=== PATIENT | female | born 1960 | race Caucasian/White ===

== ENCOUNTER 2021-08-12 10:20 | Inpatient (IN) | payer MEDICAID ==
[~2021-08-12] VITALS: Ht 162.6 cm; Wt 76.7 kg
[2021-08-12 10:53] LABS: BASOPHILS % (AUTO) 0.8 % (0.0-2.0); EOSINOPHILS % (AUTO) 4.7 % (1.0-6.0); HEMATOCRIT 33.9 % (36-46); HEMOGLOBIN 10.9 g/dL (12.0-16.0); LYMPHOCYTES # (AUTO) 1.5 K/uL (1.0-4.8); LYMPHOCYTES % (AUTO) 15.4 % (22.0-44.0); MEAN CORPUSCULAR HEMOGLOBIN 25.5 pg (26.0-34.0); MEAN CORPUSCULAR HGB CONC 32.2 G/dL (31.0-37.0); MEAN CORPUSCULAR VOLUME 79 fL (80-100); MONOCYTES # (AUTO) 0.6 K/uL (0.1-1.0); MONOCYTES % (AUTO) 6.4 % (2.0-9.0); NEUTROPHILS # (AUTO) 7.2 K/uL (1.8-7.7); NEUTROPHILS % (AUTO) 72.7 % (40.0-70.0); PLATELET COUNT (AUTO) 435 K/uL (150-450); RED BLOOD CELL COUNT(AUTO) 4.27 MIL/uL (4.00-5.20); RED CELL DISTRIBUTION WIDTH 17.3 % (11.5-14.5)
[2021-08-12 10:57] LABS: ANION GAP 9 mmol/L (8-16); CALCIUM, TOTAL 8.5 mg/dL (8.8-10.5); CARBON DIOXIDE 28 mmol/L (22-29); CHLORIDE 106 mmol/L (98-107); CREATININE 0.83 mg/dL (0.60-1.30); GLOMERULAR FILTR. RATE CALC > 60 mL/min (>60); GLUCOSE,RANDOM 87 mg/dL (70-110); POTASSIUM 4.1 mmol/L (3.5-5.1); SODIUM SERUM 143 mmol/L (136-145); UREA NITROGEN, BLOOD 17 mg/dL (7-18)
[2021-08-12 11:01] LABS: AMPHET/METH SCREEN,URINE NEGATIVE (NEGATIVE); BARBITURATE SCREEN, URINE NEGATIVE (NEGATIVE); BENZODIAZEPINES SCREEN,URINE NEGATIVE (NEGATIVE); CANNABINOID SCREEN,URINE NEGATIVE (NEGATIVE); COCAINE SCREEN,URINE NEGATIVE (NEGATIVE); METHADONE SCREEN, URINE NEGATIVE (NEGATIVE); OPIATE SCREEN,URINE NEGATIVE (NEGATIVE)
[2021-08-12 11:02] LABS: ALANINE AMINOTRANSFERASE 17 U/L (12-78); ALBUMIN 3.5 g/dL (3.4-5.0); ALKALINE PHOSPHATASE 107 U/L (46-116); ASPARTATE AMINOTRANSFERASE 16 U/L (15-37); BILIRUBIN,TOTAL 0.3 mg/dL (0.1-1.0); TOTAL PROTEIN, SERUM 6.7 g/dL (6.4-8.2)
[2021-08-12 11:02] LABS: PHENCYCLIDINE SCREEN,URINE NEGATIVE (NEGATIVE)
[2021-08-12] MEDS ORDERED: PB/HYOSCY/ATR/SCOP/LIDO/MAALOX 55 ML BOTTLE PO ONE (13:45)
[2021-08-12] MEDS ORDERED: ZOLPIDEM TARTRATE 10 MG TABLET PO PRN (14:00)
[2021-08-12] MEDS ORDERED: QUEtiapine FUMARATE 100 MG TABLET PO PRN (14:00)
[2021-08-12] MEDS ORDERED: LORazepam 2 MG TABLET PO PRN (14:00)
[2021-08-12 14:55] LABS: COVID AG,FIA SOURCE NASAL SWAB
[2021-08-12] MEDS ORDERED: ALBUTEROL INHALER IH (18:25)
[2021-08-12] MEDS ORDERED: NAPR-1197 PO (18:25)
[2021-08-12] MEDS ORDERED: PNEUMOCOCCAL VACCINE POLYVALENT 0.5 ML VIAL [PPSV23] IM. ONE (18:30)
[2021-08-12 20:39] VITALS: BP 138/70
[2021-08-12] MEDS ORDERED: MAGNESIUM HYDROXIDE SUSPENSION 30 ML UDCUP PO PRN (20:45)
[2021-08-12] MEDS ORDERED: IBUPROFEN 400 MG TABLET PO PRN (20:45)
[2021-08-12] MEDS ORDERED: PETROLATUM,WHITE 28 GM JELLY TP PRN (20:45)
[2021-08-12] MEDS ORDERED: GuaiFENesin/D-METHORPHAN [SUGAR-FREE] 200-20MG/10 ML SYRUP UDCUP PO PRN (20:45)
[2021-08-12] MEDS ORDERED: NICOTINE 14 MG/24 HOUR PATCH TD PRN (20:45)
[2021-08-12] MEDS ORDERED: MAG HYDROX/AL HYDROX/SIMETH ES 30 ML SUSPENSION UDCUP PO PRN (20:45)
[2021-08-12] MEDS ORDERED: DOCUSATE SODIUM 100 MG CAPSULE PO PRN (20:45)
[2021-08-12] MEDS ORDERED: LOPERAMIDE HCL 2 MG CAPSULE PO PRN (20:45)
[2021-08-12] MEDS ORDERED: CloNIDine HCL 0.1 MG TABLET PO PRN (20:45)
[2021-08-12] MEDS ORDERED: ONDANSETRON HCL 4 MG TABLET PO PRN (20:45)
[2021-08-12] MEDS ORDERED: NAPROXEN 250 MG TABLET PO PRN (22:00)
[2021-08-13 01:45] VITALS: BP 131/69
[2021-08-13] MEDS: ALBUTEROL SULFATE HFA 90 MCG/PUFF 8 GM INHALER IH PRN ×4 (01:50→21:58)
[2021-08-13] MEDS: ACETAMINOPHEN 325 MG TABLET PO PRN (01:50)
[2021-08-13 06:21] LABS: GLUCOMETER DEV NAME(LOC) BV2S.; GLUCOSE,POINT OF CARE 97 MG/DL (70-110)
[2021-08-13] MEDS: OMEPRAZOLE 20 MG CAPSULE PO SCH (06:37)
[2021-08-13 08:03] VITALS: BP 134/81
[2021-08-13] MEDS ORDERED: ALBU8HFA IH (11:56)
[2021-08-13] MEDS: ARIPiprazole 10 MG TABLET PO SCH (12:04)
[2021-08-13 16:13] VITALS: BP 114/64
[2021-08-13] MEDS: INDOMETHACIN 25 MG CAPSULE PO SCH (17:03)
[2021-08-14 01:01] VITALS: BP 108/66
[2021-08-14] MEDS: ACETAMINOPHEN 325 MG TABLET PO PRN ×2 (02:10→19:34)
[2021-08-14 02:11] VITALS: BP 127/71
[2021-08-14] MEDS: ALBUTEROL SULFATE HFA 90 MCG/PUFF 8 GM INHALER IH PRN ×3 (04:19→17:02)
[2021-08-14] MEDS: OMEPRAZOLE 20 MG CAPSULE PO SCH (06:46)
[2021-08-14] MEDS: ARIPiprazole 10 MG TABLET PO SCH (08:19)
[2021-08-14] MEDS: INDOMETHACIN 25 MG CAPSULE PO SCH ×2 (08:19→16:31)
[2021-08-14 08:24] VITALS: BP 119/74
[2021-08-14 16:09] VITALS: BP 99/61
[2021-08-15] MEDS: ALBUTEROL SULFATE HFA 90 MCG/PUFF 8 GM INHALER IH PRN ×4 (00:32→23:14)
[2021-08-15] MEDS: ACETAMINOPHEN 325 MG TABLET PO PRN ×2 (04:18→23:13)
[2021-08-15 05:15] VITALS: BP 138/77
[2021-08-15] MEDS: OMEPRAZOLE 20 MG CAPSULE PO SCH (06:54)
[2021-08-15 08:32] VITALS: BP 130/60
[2021-08-15] MEDS: INDOMETHACIN 25 MG CAPSULE PO SCH ×2 (08:44→16:57)
[2021-08-15] MEDS: ARIPiprazole 10 MG TABLET PO SCH (08:45)
[2021-08-15 17:40] VITALS: BP 120/85
[2021-08-16 00:34] VITALS: BP 123/79
[2021-08-16] MEDS: ALBUTEROL SULFATE HFA 90 MCG/PUFF 8 GM INHALER IH PRN ×4 (05:26→19:13)
[2021-08-16] MEDS: ACETAMINOPHEN 325 MG TABLET PO PRN (05:27)
[2021-08-16] MEDS: OMEPRAZOLE 20 MG CAPSULE PO SCH (06:54)
[2021-08-16 08:07] VITALS: BP 140/90
[2021-08-16] MEDS: INDOMETHACIN 25 MG CAPSULE PO SCH ×2 (08:42→16:45)
[2021-08-16] MEDS: ARIPiprazole 10 MG TABLET PO SCH (08:42)
[2021-08-16 16:18] VITALS: BP 105/64
[2021-08-17 00:17] VITALS: BP 106/62
[2021-08-17] MEDS: ACETAMINOPHEN 325 MG TABLET PO PRN ×2 (01:11→22:37)
[2021-08-17] MEDS: ALBUTEROL SULFATE HFA 90 MCG/PUFF 8 GM INHALER IH PRN ×4 (01:13→18:15)
[2021-08-17] MEDS: OMEPRAZOLE 20 MG CAPSULE PO SCH (06:53)
[2021-08-17 08:14] VITALS: BP 104/62
[2021-08-17 08:26] LABS: GLUCOMETER DEV NAME(LOC) POC.BV
[2021-08-17] MEDS: INDOMETHACIN 25 MG CAPSULE PO SCH ×2 (09:21→16:41)
[2021-08-17] MEDS: ARIPiprazole 10 MG TABLET PO SCH (09:21)
[2021-08-17 16:17] VITALS: BP 107/68
[2021-08-17] MEDS ORDERED: ARIP10TA38 PO (19:08)
[2021-08-18 00:44] VITALS: BP 104/63
[2021-08-18 03:19] VITALS: BP 139/85
[2021-08-18] MEDS: ALBUTEROL SULFATE HFA 90 MCG/PUFF 8 GM INHALER IH PRN ×2 (03:25→07:44)
[2021-08-18] MEDS: OMEPRAZOLE 20 MG CAPSULE PO SCH (07:00)
[2021-08-18] MEDS ORDERED: INDO-16 PO (07:42)
[2021-08-18] MEDS ORDERED: OMEP20 PO (07:42)
[2021-08-18 08:03] VITALS: BP 141/77
[2021-08-18] MEDS: ARIPiprazole 10 MG TABLET PO SCH (08:18)
[2021-08-18] MEDS: INDOMETHACIN 25 MG CAPSULE PO SCH (08:18)
== END 2021-08-18 08:30 | disposition home or self-care (01) | DRG 753 ==
LOC: EMS 10:23 → B2S 14:28
PROVIDERS: ADMIT Psychiatry & Neurology Psychiatry; ATTEND Psychiatry & Neurology Psychiatry
DX: F31.4 Bipolar disorder, current episode depressed, severe, without psychotic features (principal); R45.851 Suicidal ideations; D64.9 Anemia, unspecified; Z20.822 Contact with and (suspected) exposure to COVID-19; M17.11 Unilateral primary osteoarthritis, right knee; J44.9 Chronic obstructive pulmonary disease, unspecified; Z59.00 Homelessness unspecified; Z91.51 Personal history of suicidal behavior; Z87.891 Personal history of nicotine dependence
CPT/HCPCS: 80053; 82962; 84550; 85025; 87081; 90732; 99285; G0480; J3535

== ENCOUNTER 2021-09-07 09:48 | Emergency (ER) | payer MEDICAID ==
[~2021-09-07] VITALS: Ht 165.1 cm; Wt 68.2 kg
[~2021-09-07 09:48] MED LIST: ARIP10TA38 PO; INDO-16 PO; OMEP20 PO
[2021-09-07 13:15] VITALS: BP 136/65
[2021-09-07] MEDS ORDERED: TRAM50TA4 PO (13:43)
== END 2021-09-07 14:24 | disposition home or self-care (01) ==
LOC: EMS 09:48
DX: N81.10 Cystocele, unspecified (principal); F31.9 Bipolar disorder, unspecified; J45.909 Unspecified asthma, uncomplicated; Z79.899 Other long term (current) drug therapy
CPT/HCPCS: 99284; Z7502